=== PATIENT | female | born 1995 ===

== ENCOUNTER 2019-03-11 12:48 | Emergency (ER) | payer OTHER ==
[2019-03-11 14:21] LABS: BLOOD UREA NITROGEN,BUN 14 mg/dL (7.0-18.0); CARBON DIOXIDE,CO2 21.4 mmol/L (21.0-32.0); CHLORIDE,CL 105 mmol/L (98-107); GLUCOSE RANDOM 98 mg/dL (74-106); POTASSIUM,K 4.1 mmol/L (3.5-5.1); SODIUM,NA 142 mmol/L (136-145)
[2019-03-11] MEDS ORDERED: Ondansetron 4 MG/2 ML SDV IVPUSH ONE (14:22)
[2019-03-11] MEDS ORDERED: Morphine 2 MG/ML Syringe IVPUSH ONE (14:22)
[2019-03-11] MEDS ORDERED: Sodium Chloride 0.9% 1,000 ML IV SCH (14:30)
--- NOTE | 2019-03-11 14:55 | EDM.PDOC ---
ED HPI GENERAL MEDICAL PROBLEM - General Chief Complaint: RECRUITMENT MANAGER Problem Stated Complaint: VIGINAL BLEEDING Time Seen by Provider: 03/11/19 14:54 Source of Information: Reports: Patient - History of Present Illness INITIAL COMMENTS - FREE TEXT/NARRATIVE: HISTORY AND PHYSICAL: History of present illness: [Patient presents with miscarriage, she was concerned as she is passing blood the rate of 1 pad per hour miscarriage occurred at 10 AM today as far as passage of products of conception, she has been seen in the clinic with ongoing care and expectation of the miscarriage. Today she is nontoxic appearing in no distress but does have concerns she has had a prolonged stay here in the ER just as we are busy however she is doing well I did provide morphine and Zofran pain is controlled she is alert interactive in no distress Fever nausea vomiting chills sweats no chest pain shortness of breath headache dizziness palpitation no bowel or urine symptoms ] Review of systems: As per history of present illness and below otherwise all systems reviewed and negative. Past medical history: As per history of present illness and as reviewed below otherwise noncontributory. Surgical history: As per history of present illness and as reviewed below otherwise noncontributory. Social history: No reported history of drug or alcohol abuse. Family history: As per history of present illness and as reviewed below otherwise noncontributory. Physical exam: HEENT: Atraumatic, normocephalic, pupils reactive, negative for conjunctival pallor or scleral icterus, mucous membranes moist, throat clear, neck supple, nontender, trachea midline. Lungs: Clear to auscultation, breath sounds equal bilaterally, chest nontender. Heart: S1S2, regular, negative for clicks, rubs, or JVD. Abdomen: Soft, nondistended, nontender. Negative for masses or hepatosplenomegaly. Negative for costovertebral tenderness. Pelvis: Stable nontender. Genitourinary: Genital exam no products of conception her observed cervix remains open to 1 cm at this time appears to take floating closing there is some blood in the vaginal vault but I do not appreciate any products of conception that remain Rectal: Deferred. Extremities: Atraumatic, negative for cords or calf pain. Neurovascular unremarkable. Neuro: Awake, alert, oriented. Cranial nerves II through XII unremarkable. Cerebellum unremarkable. Motor and sensory unremarkable throughout. Exam nonfocal. Diagnostics: [BC CMP hCG quant ] Therapeutics: [norco Zofran Follow-up with Shirley Schmitt] ER referral for Wednesday Turn if symptoms persist or worsen or if new concerning symptoms develop Impression: [Incomplete ] Definitive disposition and diagnosis as appropriate pending reevaluation and review of above. abd Pain Score (Numeric/FACES): 10 - Related Data Allergies Allergy/AdvReac Type Severity Reaction Status Date / Time No Known Allergies Allergy Verified 03/11/19 12:59 Home Meds: Home Meds . [No Known Home Meds] 03/11/19 [History] Past Medical History - Past Health History Medical/Surgical History: Denies Medical/Surgical History Social & Family History - Family History Family Medical History: Noncontributory - Tobacco Use Smoking Status *Q: Never Smoker - Recreational Drug Use Recreational Drug Use: No ED ROS GENERAL - Review of Systems Review Of Systems: See Below ED EXAM, GENERAL - Physical Exam Exam: See Below Course - Vital Signs Last Recorded V/S: Last Vital Signs Temp 95.9 F 03/11/19 13:00 Pulse 66 03/11/19 14:20 Resp 16 03/11/19 14:20 BP 107/58 L 03/11/19 14:20 Pulse Ox 97 03/11/19 14:20 - Orders/Labs/Meds Orders: Active Orders 24 hr Category Date Time Status Sodium Chloride 0.9% [Normal Saline] 1,000 ml Med 03/11/19 14:30 Active IV STAT Medication Orders Sodium Chloride (Normal Saline) 1,000 mls @ 999 mls/hr IV STAT SALLIE Last Admin: 03/11/19 14:29 Dose: 999 mls/hr Labs: Laboratory Tests 03/11/19 03/11/19 Range/Units 13:45 13:45 WBC 13.36 H (4.0-11.0) K/uL RBC 4.22 L (4.30-5.90) M/uL Hgb 13.6 (12.0-16.0) g/dL Hct 38.5 (36.0-46.0) % MCV 91.2 (80.0-98.0) fL MCH 32.2 H (27.0-32.0) pg MCHC 35.3 (31.0-37.0) g/dL RDW Std Deviation 41.1 (28.0-62.0) fl RDW Coeff of Aarti 12 (11.0-15.0) % Plt Count 171 (150-400) K/uL MPV 9.80 (7.40-12.00) fL Neut % (Auto) 87.2 H (48.0-80.0) % Lymph % (Auto) 9.2 L (16.0-40.0) % [place] % (Auto) 3.4 (0.0-15.0) % Eos % (Auto) 0.1 (0.0-7.0) % Baso % (Auto) 0.1 (0.0-1.5) % Neut # (Auto) 11.6 H (1.4-5.7) K/uL Lymph # (Auto) 1.2 (0.6-2.4) K/uL [place] # (Auto) 0.5 (0.0-0.8) K/uL Eos # (Auto) 0.0 (0.0-0.7) K/uL Baso # (Auto) 0.0 (0.0-0.1) K/uL Nucleated RBC % 0.0 /100WBC Nucleated RBCs # 0 K/uL Sodium 142 (136-145) mmol/L Potassium 4.1 (3.5-5.1) mmol/L Chloride 105 (98-107) mmol/L Carbon Dioxide 21.4 (21.0-32.0) mmol/L BUN 14 (7.0-18.0) mg/dL Creatinine 0.7 (0.6-1.0) mg/dL Est Cr Clr Drug Dosing 84.30 mL/min Estimated GFR (MDRD) > 60.0 ml/min Glucose 98 (74-106) mg/dL Calcium 8.9 (8.5-10.1) mg/dL Total Bilirubin 0.5 (0.2-1.0) mg/dL AST 21 (15-37) IU/L ALT 30 (14-63) IU/L Alkaline Phosphatase 71 (46-116) U/L Total Protein 7.8 (6.4-8.2) g/dL Albumin 4.3 (3.4-5.0) g/dL Globulin 3.5 (2.6-4.0) g/dL Albumin/Globulin Ratio 1.2 (0.9-1.6) HCG, Quant 6689.0 mIU/mL Meds: Medications Generic Name Dose Route Start Last Admin Trade Name Freq PRN Reason Stop Dose Admin Sodium Chloride 1,000 mls @ 999 mls/hr 03/11/19 14:30 03/11/19 14:29 Normal Saline IV 999 mls/hr STAT SALLIE Administration Discontinued Medications Generic Name Dose Route Start Last Admin Trade Name Freq PRN Reason Stop Dose Admin Morphine Sulfate 2 mg 03/11/19 14:22 03/11/19 14:31 Morphine IVPUSH 03/11/19 14:23 2 mg ONETIME ONE Administration Ondansetron HCl 4 mg 03/11/19 14:22 03/11/19 14:30 Zofran IVPUSH 03/11/19 14:23 4 mg ONETIME ONE Administration Departure - Departure Time of Disposition: 15:25 Disposition: Home, Self-Care 01 Condition: Good Clinical Impression: Incomplete - Discharge Information Referrals: PCP,None [Primary Care Provider] - Forms: ED Department Discharge Additional Instructions: Medication as prescribed Return if symptoms persist or worsen Follow-up with Shirley Schmitt on Wednesday ER referral provided The following information is given to patients seen in the emergency department who are being discharged to home. This information is to outline your options for follow-up care. We provide all patients seen in our emergency department with a follow-up referral. The need for follow-up, as well as the timing and circumstances, are variable depending upon the specifics of your emergency department visit. If you don't have a primary care physician on staff, we will provide you with a referral. We always advise you to contact your personal physician following an emergency department visit to inform them of the circumstance of the visit and for follow-up with them and/or the need for any referrals to a consulting specialist. The emergency department will also refer you to a specialist when appropriate. This referral assures that you have the opportunity for follow-up care with a specialist. All of these measure are taken in an effort to provide you with optimal care, which includes your follow-up. Under all circumstances we always encourage you to contact your private physician who remains a resource for coordinating your care. When calling for follow-up care, please make the office aware that this follow-up is from your recent emergency room visit. If for any reason you are refused follow-up, please contact the [facility] emergency department at and asked to speak to the emergency department charge nurse. Sepsis Event Note - Evaluation Sepsis Screening Result: No Definite Risk - Focused Exam Vital Signs: Vital Signs Temp Pulse Resp BP Pulse Ox 03/11/19 14:20 66 16 107/58 L 97 03/11/19 14:00 61 18 101/44 L 97 03/11/19 13:30 64 18 98/59 L 97 03/11/19 13:15 61 18 100/56 L 96 03/11/19 13:00 95.9 F 54 L 16 87/49 L 100 Date Exam was Performed: 03/11/19 Time Exam was Performed: 15:19 - My Orders Last 24 Hours: My Active Orders 03/11/19 14:30 Sodium Chloride 0.9% [Normal Saline] 1,000 ml IV STAT - Assessment/Plan Last 24 Hours: My Active Orders 03/11/19 14:30 Sodium Chloride 0.9% [Normal Saline] 1,000 ml IV STAT
== END 2019-03-11 15:43 | disposition home or self-care (01) ==
LOC: MW.ED 12:48
DX: O03.4 Incomplete spontaneous abortion without complication (principal)
CPT/HCPCS: 36415; 80053; 84702; 85025; 96361; 96374; 96375; 99284; J2270; J2405; J7030; 99283

== ENCOUNTER 2019-12-26 23:58 | Inpatient (IN) | payer OTHER ==
[2019-12-27] MEDS ORDERED: Sodium Chloride 0.9% 10 ML Syringe FLUSH PRN (00:10)
[2019-12-27] MEDS ORDERED: Lidocaine 1% 50 ML MDV INJECT PRN (00:10)
[2019-12-27] MEDS ORDERED: Butorphanol 1 MG/ML SDV IVPUSH PRN (00:10)
[2019-12-27] MEDS ORDERED: Water For Irrigation,Sterile 1,000 ML Container IRR PRN (00:10)
[2019-12-27] MEDS ORDERED: Methylergonovine 0.2 MG/1 ML Amp IM PRN (00:10)
[2019-12-27] MEDS ORDERED: Tranexamic Acid 1,000 MG in Sodium Chloride 0.9% 100 ML IV PRN (00:10)
[2019-12-27] MEDS ORDERED: Misoprostol 200 MCG Tab PO PRN (00:10)
[2019-12-27] MEDS ORDERED: Nalbuphine 10 MG/1 ML Vial IVPUSH PRN (00:10)
[2019-12-27] MEDS ORDERED: Sodium Chloride 0.9% 2.5 ML Syringe FLUSH PRN (00:10)
[2019-12-27] MEDS ORDERED: Sodium Chloride 0.9% 10 ML SDV IV PRN (00:10)
[2019-12-27] MEDS ORDERED: Carboprost Tromethamine 250 MCG/1 ML Amp IM PRN (00:10)
[2019-12-27] MEDS ORDERED: Oxytocin/0.9 % Sodium Chloride 30 UNIT/500 ML BAG IV SCH (00:15)
[2019-12-27] MEDS ORDERED: Lactated Ringers 1,000 ML IV SCH (00:15)
[2019-12-27] MEDS ORDERED: Benzocaine/Menthol 20%-0.5% Spray 78 GM Cannister TOP PRN (01:03)
[2019-12-27] MEDS ORDERED: Docusate Sodium 100 MG Cap PO PRN (01:03)
[2019-12-27] MEDS ORDERED: oxyCODONE 5 MG Tab PO PRN (01:03)
[2019-12-27] MEDS ORDERED: Ibuprofen 400 MG Tab PO PRN (01:03)
[2019-12-27] MEDS ORDERED: Acetaminophen 500 MG Tab PO PRN (01:03)
[2019-12-27] MEDS ORDERED: Lanolin 100% Cream 7 GM Tube TOP PRN (01:03)
[2019-12-27] MEDS ORDERED: Witch Hazel Medicated Pads 40/Jar TOP PRN (01:03)
[2019-12-27] MEDS ORDERED: Bisacodyl 10 MG Supp RECTAL PRN (01:03)
[2019-12-27] MEDS: Ibuprofen 800 MG Tab PO PRN ×2 (02:26→11:00)
--- NOTE | 2019-12-27 09:28 | PCM.PNPP ---
- General Info Date of Service: 12/27/19 Functional Status: Reports: Pain Controlled - Review of Systems General: Reports: No Symptoms HEENT: Reports: No Symptoms Pulmonary: Reports: No Symptoms Cardiovascular: Reports: No Symptoms Gastrointestinal: Reports: No Symptoms Genitourinary: Reports: No Symptoms Musculoskeletal: Reports: No Symptoms Skin: Reports: No Symptoms Neurological: Reports: No Symptoms Psychiatric: Reports: No Symptoms - General Info Date of Service: 12/27/19 - Patient Data Vital Signs - Most Recent: Last Vital Signs Temp 35.6 C L 12/27/19 08:17 Pulse 67 12/27/19 08:17 Resp 20 12/27/19 08:17 BP 111/53 L 12/27/19 08:17 Pulse Ox 98 12/27/19 08:17 Weight - Most Recent: 56.699 kg Lab Results - Last 24 Hours: Laboratory Results - last 24 hr 12/27/19 12/27/19 Range/Units 00:25 00:25 WBC 8.56 (4.0-11.0) K/uL RBC 3.38 L (4.30-5.90) M/uL Hgb 7.8 L (12.0-16.0) g/dL Hct 25.3 L (36.0-46.0) % MCV 74.9 L (80.0-98.0) fL MCH 23.1 L (27.0-32.0) pg MCHC 30.8 L (31.0-37.0) g/dL RDW Std Deviation 45.0 (28.0-62.0) fl RDW Coeff of Aarti 17 H (11.0-15.0) % Plt Count 315 (150-400) K/uL MPV 10.40 (7.40-12.00) fL Blood Type O POSITIVE Antibody Screen NEGATIVE Med Orders - Current: Current Medications Acetaminophen (Tylenol Extra Strength) 500 mg PO Q4H PRN PRN Reason: Pain Acetaminophen (Tylenol Extra Strength) 1,000 mg PO Q4H PRN PRN Reason: Pain Benzocaine/Menthol (Dermoplast Pain Relief 20%-0.5% [place]) 78 gm TOP ASDIRECTED PRN PRN Reason: Perineal Comfort Measure Bisacodyl (Dulcolax) 10 mg RECTAL ONETIME PRN PRN Reason: Constipation Docusate Sodium (Colace) 100 mg PO BID PRN PRN Reason: Constipation Emollient Ointment (Lansinoh Hpa) 0 gm TOP ASDIRECTED PRN PRN Reason: Sore Nipples Ibuprofen (Motrin) 400 mg PO Q4H PRN PRN Reason: Pain Ibuprofen (Motrin) 800 mg PO Q6H PRN PRN Reason: Pain Last Admin: 12/27/19 02:26 Dose: 800 mg Documented by: Oxycodone HCl (Oxycodone) 5 mg PO Q2H PRN PRN Reason: Pain Sodium Chloride (Saline Flush) 10 ml FLUSH ASDIRECTED PRN PRN Reason: Keep Vein Open Sodium Chloride (Saline Flush) 2.5 ml FLUSH ASDIRECTED PRN PRN Reason: Keep Vein Open Sodium Chloride (Normal Saline) 10 ml IV ASDIRECTED PRN PRN Reason: IV Use Witch Andree (Tucks) 1 pad TOP ASDIRECTED PRN PRN Reason: comfort care Discontinued Medications Butorphanol Tartrate (Stadol) 1 mg IVPUSH Q1H PRN PRN Reason: Pain Carboprost Tromethamine (Hemabate Ds) 250 mcg IM ASDIRECTED PRN PRN Reason: Post Hemorrhage Oxytocin/Sodium Chloride (Oxytocin 30 Unit/500 Ml-Ns) 30 unit in 500 mls @ 500 mls/hr IV TITRATE [facility] Last Admin: 12/27/19 00:46 Dose: 500 mls/hr Documented by: Tranexamic Acid 1,000 mg/ (Sodium Chloride) 110 mls @ 660 mls/hr IV ONETIME PRN PRN Reason: Bleeding Lactated Ringer's (Ringers, Lactated) 1,000 mls @ 150 mls/hr IV ASDIRECTED [facility] Last Admin: 12/27/19 00:10 Dose: 150 mls/hr Documented by: Lidocaine HCl (Xylocaine 1%) 50 ml INJECT ONETIME PRN PRN Reason: Laceration repair Methylergonovine Maleate (Methergine) 0.2 mg IM ASDIRECTED PRN PRN Reason: Post Hemorrhage Misoprostol (Cytotec) 200 mcg PO ONETIME PRN PRN Reason: Post Hemorrhage Nalbuphine HCl (Nubain) 10 mg IVPUSH Q1H PRN PRN Reason: Pain (severe 7-10) Sterile Water (Sterile Water For Irrigation) 1,000 ml IRR ASDIRECTED PRN PRN Reason: delivery - Infant Interaction Disposition, : [place] in Room with Family Infant Interaction: Holding Infant Infant Feeding: Attempted ; Nursed Fair/Poor Support Person: - Recovery Exam Fundal Tone: Firm Fundal Level: At Umbilicus Fundal Placement: Midline Lochia Amount: Scant Perineum Description: Intact, Minimal Bruising/Swelling Episiotomy/Laceration: None Bladder Status: Voiding - Exam General: Alert, Oriented HEENT: Pupils Equal Neck: Supple Lungs: Clear to Auscultation, Normal Respiratory Effort Cardiovascular: Regular Rate, Regular Rhythm GI/Abdominal Exam: Normal Bowel Sounds, Soft, Non-Tender, No Organomegaly, No Distention, No Abnormal Bruit, No Mass, Pelvis Stable Extremities: Normal Inspection, Normal Range of Motion, Non-Tender, No Pedal Edema, Normal Capillary Refill Skin: Warm, Dry, Intact Wound/Incisions: Healing Well Neurological: No New Focal Deficit Psy/Mental Status: Alert, Normal Affect, Normal Mood - Problem List Review Problem List Initiated/Reviewed/Updated: Yes - My Orders Last 24 Hours: My Active Orders 12/27/19 Breakfast Regular Diet [DIET] - Assessment Assessment:: Status post normal spontaneous vaginal delivery doing well day 1 - Plan Plan:: Plan sent home in a.m.
--- NOTE | 2019-12-27 09:49 | PCM.LDHP ---
L&D History of Present Illness - General Date of Service: 12/27/19 (LATE ENTRY) Admit Problem/Dx: Patient Status Order with Admit Dx/Problem 12/27/19 00:10 Patient Status [ADT] Routine 12/27/19 01:04 Patient Status [ADT] Routine Admission Diagnosis/Problem Admission Diagnosis/Problem Source of Information: Patient History Limitations: Reports: No Limitations - History of Present Illness Introduction:: 24yo at 38w6d GA presented to L&D with contractions She reports contractions x2d. No VB, or LOF. Good movement. was uncomplicated. O positive, Abs screen negative, RI, GBS negative Pain Score: 2 - Related Data Allergies/Adverse Reactions: Allergies Allergy/AdvReac Type Severity Reaction Status Date / Time No Known Allergies Allergy Verified 12/26/19 12:49 Home Medications: Home Meds . 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: , Spontaneous Social & Family History - Family History Family Medical History: No Pertinent Family History - Tobacco Use Tobacco Use Status *Q: Never Tobacco User Second Hand Smoke Exposure: No - Caffeine Use Caffeine Use: Reports: None - Recreational Drug Use Recreational Drug Use: No H&P Review of Systems - Review of Systems: Review Of Systems: See Below General: Reports: No Symptoms HEENT: Reports: No Symptoms Pulmonary: Reports: No Symptoms Cardiovascular: Reports: No Symptoms Gastrointestinal: Reports: No Symptoms Genitourinary: Reports: No Symptoms Musculoskeletal: Reports: No Symptoms Skin: Reports: No Symptoms Psychiatric: Reports: No Symptoms Neurological: Reports: No Symptoms Hematologic/Lymphatic: Reports: No Symptoms L&D Exam - Exam Exam: See Below - Vital Signs Vital Signs: Last Vital Signs Temp 96.0 F L 12/27/19 08:17 Pulse 67 12/27/19 08:17 Resp 20 12/27/19 08:17 BP 111/53 L 12/27/19 08:17 Pulse Ox 98 12/27/19 08:17 Weight: 56.699 kg - OB Specific Contraction Intensity: Moderate to Strong Movement: Active Heart Tones: Present Heart Tones per Min: 145 Heart Rate (FHR) Variability: Moderate (6-25 bmp) Presentation: Vertex Estimated Weight: 7lbs - Holland Score Holland Score Cervix Position: Anterior Holland Score Consistency: Soft Holland Score Effacement: >80% Holland Score Dilation: > 5 cm Holland Score Infant's Station: -1 ,0 Holland Score Total: 12 - Exam General: Alert, Oriented, Moderate Distress Neck: Supple Lungs: Normal Respiratory Effort Cardiovascular: Regular Rate Extremities: Normal Inspection - Patient Data Lab Results Last 24 hrs: Laboratory Results - last 24 hr 12/27/19 12/27/19 Range/Units 00:25 00:25 WBC 8.56 (4.0-11.0) K/uL RBC 3.38 L (4.30-5.90) M/uL Hgb 7.8 L (12.0-16.0) g/dL Hct 25.3 L (36.0-46.0) % MCV 74.9 L (80.0-98.0) fL MCH 23.1 L (27.0-32.0) pg MCHC 30.8 L (31.0-37.0) g/dL RDW Std Deviation 45.0 (28.0-62.0) fl RDW Coeff of Aarti 17 H (11.0-15.0) % Plt Count 315 (150-400) K/uL MPV 10.40 (7.40-12.00) fL Blood Type O POSITIVE Antibody Screen NEGATIVE Result Diagrams: 12/27/19 00:25 - Problem List (1) Term SNOMED Code(s): 97240084 ICD Code: Z34.90 - ENCNTR FOR SUPRVSN OF NORMAL , UNSP, UNSP TRIMESTER Status: Acute Priority: Medium Current Visit: Yes (2) Normal labor SNOMED Code(s): 85278508 ICD Code: O80 - ENCOUNTER FOR FULL-TERM UNCOMPLICATED DELIVERY; Z37.9 - OUTCOME OF DELIVERY, UNSPECIFIED Status: Acute Priority: High Current Vis it: Yes Problem List Initiated/Reviewed/Updated: Yes Orders Last 24hrs: Active Orders 24 hr Category Date Time Status Patient Status [ADT] Routine ADT 12/27/19 01:04 Active May Shower [RC] ASDIRECTED Care 12/27/19 01:04 Active Up ad Tessie [RC] ASDIRECTED Care 12/27/19 01:04 Active Vital Signs [RC] PER UNIT ROUTINE Care 12/27/19 01:04 Active Regular Diet [DIET] Diet 12/27/19 Breakfast Active HEMOGLOBIN/HEMATOCRIT,HH [HEME] Timed Lab 12/28/19 05:11 Ordered RPR (SYPHILIS SERO) W/ RFLX [REF] Routine Lab 12/27/19 00:25 Stop Req Acetaminophen [Tylenol Extra Strength] Med 12/27/19 01:03 Active 1,000 mg PO Q4H PRN Acetaminophen [Tylenol Extra Strength] Med 12/27/19 01:03 Active 500 mg PO Q4H PRN Benzocaine/Menthol [Dermoplast Pain Relief 20%-0.5% Med 12/27/19 01:03 Active [place]] 78 gm TOP ASDIRECTED PRN Docusate Sodium [Colace] Med 12/27/19 01:03 Active 100 mg PO BID PRN Ibuprofen [Motrin] Med 12/27/19 01:03 Active 400 mg PO Q4H PRN Ibuprofen [Motrin] Med 12/27/19 01:03 Active 800 mg PO Q6H PRN Lanolin [Lansinoh HPA] Med 12/27/19 01:03 Active See Dose Instructions TOP ASDIRECTED PRN Sodium Chloride 0.9% [Normal Saline] Med 12/27/19 00:10 Active 10 ml IV ASDIRECTED PRN Sodium Chloride 0.9% [Saline Flush] Med 12/27/19 00:10 Active 10 ml FLUSH ASDIRECTED PRN Sodium Chloride 0.9% [Saline Flush] Med 12/27/19 00:10 Active 2.5 ml FLUSH ASDIRECTED PRN bisacodyL [Dulcolax] Med 12/27/19 01:03 Active 10 mg RECTAL ONETIME PRN oxyCODONE Med 12/27/19 01:03 Active 5 mg PO Q2H PRN witch Andree [Tucks] Med 12/27/19 01:03 Active 1 pad TOP ASDIRECTED PRN Assess Lochia [WOMSER] Per Unit Routine Oth 12/27/19 01:04 Ordered Assess Uterine Involution [WOMSER] Per Unit Routine Oth 12/27/19 01:04 Ordered Peripheral IV Discontinue [OM.PC] Routine Oth 12/27/19 01:04 Ordered Peripheral IV Insertion Adult [OM.PC] Routine Oth 12/27/19 00:10 Ordered Resuscitation Status Routine Resus Stat 12/27/19 00:10 Ordered Medication Orders Acetaminophen (Tylenol Extra Strength) 500 mg PO Q4H PRN PRN Reason: Pain Acetaminophen (Tylenol Extra Strength) 1,000 mg PO Q4H PRN PRN Reason: Pain Benzocaine/Menthol (Dermoplast Pain Relief 20%-0.5% [place]) 78 gm TOP ASDIRECTED PRN PRN Reason: Perineal Comfort Measure Bisacodyl (Dulcolax) 10 mg RECTAL ONETIME PRN PRN Reason: Constipation Docusate Sodium (Colace) 100 mg PO BID PRN PRN Reason: Constipation Emollient Ointment (Lansinoh Hpa) 0 gm TOP ASDIRECTED PRN PRN Reason: Sore Nipples Ibuprofen (Motrin) 400 mg PO Q4H PRN PRN Reason: Pain Ibuprofen (Motrin) 800 mg PO Q6H PRN PRN Reason: Pain Last Admin: 12/27/19 02:26 Dose: 800 mg Documented by: ROBERTO Oxycodone HCl (Oxycodone) 5 mg PO Q2H PRN PRN Reason: Pain Sodium Chloride (Saline Flush) 10 ml FLUSH ASDIRECTED PRN PRN Reason: Keep Vein Open Sodium Chloride (Saline Flush) 2.5 ml FLUSH ASDIRECTED PRN PRN Reason: Keep Vein Open Sodium Chloride (Normal Saline) 10 ml IV ASDIRECTED PRN PRN Reason: IV Use Witch Andree (Tucks) 1 pad TOP ASDIRECTED PRN PRN Reason: comfort care Assessment/Plan Comment:: 24yo @ 38w6d [place] here is active labor with imminent delivery. Category 1 tracing. GBS negative. Patient desires to pursue with delivery without epidural. Expectant management
--- NOTE | 2019-12-27 10:04 | PCM.DEL ---
L & D Note - General Info Date of Service: 12/27/19 (LATE ENTRY) Mother's Due Date: 01/04/20 - Delivery Note Delivery Outcome: Livebirth Delivery Method: Spontaneous Vaginal Delivery-Single Presentation: Vertex Nuchal Cord: Present, Reduced Anesthesia Type: None Episiotomy Type: None Laceration: None Placenta: Intact, Spontaneous Estimated Blood Loss: 350 Resuscitation Needed: No Score 1 min: 8 Score 5 min: 9 Delivery Comments (Free Text/Narrative):: 24yo at 38w6d [place] admitted with active labor at 9cm dilated. was uncomplicated. O positive, Abs screen negative, RI, GBS negative. Normal spontaneous vaginal delivery, of live female infant position HADLEY, over an intact perineum without epidural anesthesia. Presence of loose nuchal that was reduced. Spontaneous delivery of placenta with 3-vessel cord. No laceration. Estimated blood loss 350mLs. All sponges and instrument counts correct Delivery details: Female infant Weight: 3200gms : 8/9 EBL 350cc - General Info Date of Service: 12/27/19 (LATE ENTRY) Admission Dx/Problem (Free Text): Patient Status Order with Admit Dx/Problem 12/27/19 00:10 Patient Status [ADT] Routine 12/27/19 01:04 Patient Status [ADT] Routine Admission Diagnosis/Problem Admission Diagnosis/Problem Subjective Update: 24yo at 38w6d [place] admitted with active labor at 9cm dilated. was uncomplicated. O positive, Abs screen negative, RI, GBS negative. S/P uncomplicated Delivery details: Female infant Weight: 3200gms : 8/9 EBL 350cc - Patient Data Vitals - Most Recent: Last Vital Signs Temp 96.0 F L 12/27/19 08:17 Pulse 67 12/27/19 08:17 Resp 20 12/27/19 08:17 BP 111/53 L 12/27/19 08:17 Pulse Ox 98 12/27/19 08:17 Weight - Most Recent: 56.699 kg Lab Results Last 24 Hours: Laboratory Results - last 24 hr 12/27/19 12/27/19 Range/Units 00:25 00:25 WBC 8.56 (4.0-11.0) K/uL RBC 3.38 L (4.30-5.90) M/uL Hgb 7.8 L (12.0-16.0) g/dL Hct 25.3 L (36.0-46.0) % MCV 74.9 L (80.0-98.0) fL MCH 23.1 L (27.0-32.0) pg MCHC 30.8 L (31.0-37.0) g/dL RDW Std Deviation 45.0 (28.0-62.0) fl RDW Coeff of Aarti 17 H (11.0-15.0) % Plt Count 315 (150-400) K/uL MPV 10.40 (7.40-12.00) fL Blood Type O POSITIVE Antibody Screen NEGATIVE Med Orders - Current: Current Medications Acetaminophen (Tylenol Extra Strength) 500 mg PO Q4H PRN PRN Reason: Pain Acetaminophen (Tylenol Extra Strength) 1,000 mg PO Q4H PRN PRN Reason: Pain Benzocaine/Menthol (Dermoplast Pain Relief 20%-0.5% [place]) 78 gm TOP ASDIRECTED PRN PRN Reason: Perineal Comfort Measure Bisacodyl (Dulcolax) 10 mg RECTAL ONETIME PRN PRN Reason: Constipation Docusate Sodium (Colace) 100 mg PO BID PRN PRN Reason: Constipation Emollient Ointment (Lansinoh Hpa) 0 gm TOP ASDIRECTED PRN PRN Reason: Sore Nipples Ibuprofen (Motrin) 400 mg PO Q4H PRN PRN Reason: Pain Ibuprofen (Motrin) 800 mg PO Q6H PRN PRN Reason: Pain Last Admin: 12/27/19 02:26 Dose: 800 mg Documented by: Oxycodone HCl (Oxycodone) 5 mg PO Q2H PRN PRN Reason: Pain Sodium Chloride (Saline Flush) 10 ml FLUSH ASDIRECTED PRN PRN Reason: Keep Vein Open Sodium Chloride (Saline Flush) 2.5 ml FLUSH ASDIRECTED PRN PRN Reason: Keep Vein Open Sodium Chloride (Normal Saline) 10 ml IV ASDIRECTED PRN PRN Reason: IV Use Witch Andree (Tucks) 1 pad TOP ASDIRECTED PRN PRN Reason: comfort care Discontinued Medications Butorphanol Tartrate (Stadol) 1 mg IVPUSH Q1H PRN PRN Reason: Pain Carboprost Tromethamine (Hemabate Ds) 250 mcg IM ASDIRECTED PRN PRN Reason: Post Hemorrhage Oxytocin/Sodium Chloride (Oxytocin 30 Unit/500 Ml-Ns) 30 unit in 500 mls @ 500 mls/hr IV TITRATE [facility] Last Admin: 12/27/19 00:46 Dose: 500 mls/hr Documented by: Tranexamic Acid 1,000 mg/ (Sodium Chloride) 110 mls @ 660 mls/hr IV ONETIME PRN PRN Reason: Bleeding Lactated Ringer's (Ringers, Lactated) 1,000 mls @ 150 mls/hr IV ASDIRECTED [facility] Last Admin: 12/27/19 00:10 Dose: 150 mls/hr Documented by: Lidocaine HCl (Xylocaine 1%) 50 ml INJECT ONETIME PRN PRN Reason: Laceration repair Methylergonovine Maleate (Methergine) 0.2 mg IM ASDIRECTED PRN PRN Reason: Post Hemorrhage Misoprostol (Cytotec) 200 mcg PO ONETIME PRN PRN Reason: Post Hemorrhage Nalbuphine HCl (Nubain) 10 mg IVPUSH Q1H PRN PRN Reason: Pain (severe 7-10) Sterile Water (Sterile Water For Irrigation) 1,000 ml IRR ASDIRECTED PRN PRN Reason: delivery - Exam General: Alert, Oriented Neck: Supple Lungs: Normal Respiratory Effort Cardiovascular: Regular Rate (Female) Exam: Normal External Exam Extremities: Normal Inspection - Problem List & Annotations (1) Normal vaginal delivery SNOMED Code(s): 28364302, 438848991 Code(s): O80 - ENCOUNTER FOR FULL-TERM UNCOMPLICATED DELIVERY Status: Acute Current Visit: Yes (2) Term delivered SNOMED Code(s): 12655263, 667851894 Code(s): O80 - ENCOUNTER FOR FULL-TERM UNCOMPLICATED DELIVERY Status: Acute Current Visit: Yes - Problem List Review Problem List Initiated/Reviewed/Updated: Yes - My Orders Last 24 Hours: My Active Orders 12/27/19 00:10 Sodium Chloride 0.9% [Normal Saline] 10 ml IV ASDIRECTED PRN Sodium Chloride 0.9% [Saline Flush] 10 ml FLUSH ASDIRECTED PRN Sodium Chloride 0.9% [Saline Flush] 2.5 ml FLUSH ASDIRECTED PRN Peripheral IV Insertion Adult [OM.PC] Routine Resuscitation Status Routine 12/27/19 00:25 RPR (SYPHILIS SERO) W/ RFLX [REF] Routine 12/27/19 01:03 Acetaminophen [Tylenol Extra Strength] 1,000 mg PO Q4H PRN Acetaminophen [Tylenol Extra Strength] 500 mg PO Q4H PRN Benzocaine/Menthol [Dermoplast Pain Relief 20%-0.5% [place]] 78 gm TOP ASDIRECTED PRN Docusate Sodium [Colace] 100 mg PO BID PRN Ibuprofen [Motrin] 400 mg PO Q4H PRN Ibuprofen [Motrin] 800 mg PO Q6H PRN Lanolin [Lansinoh HPA] See Dose Instructions TOP ASDIRECTED PRN bisacodyL [Dulcolax] 10 mg RECTAL ONETIME PRN oxyCODONE 5 mg PO Q2H PRN witch Andree [Tucks] 1 pad TOP ASDIRECTED PRN 12/27/19 01:04 Patient Status [ADT] Routine May Shower [RC] ASDIRECTED Up ad Tessie [RC] ASDIRECTED Vital Signs [RC] PER UNIT ROUTINE Assess Lochia [WOMSER] Per Unit Routine Assess Uterine Involution [WOMSER] Per Unit Routine Peripheral IV Discontinue [OM.PC] Routine 12/28/19 05:11 HEMOGLOBIN/HEMATOCRIT,HH [HEME] Timed - Plan Plan:: 24yo at 38w6d [place] admitted with active labor at 9cm dilated. S/P uncomplicated Delivery details: Female infant Weight: 3200gms : 8/9 EBL 350cc
[2019-12-27] MEDS: Acetaminophen 500 MG Tab PO PRN (20:07)
--- NOTE | 2019-12-28 06:19 | PCM.DCSUM1 ---
Discharge Summary - Hospital Course Free Text/Narrative:: Leandra is a 24 yo PPD1 S/P uncomplicated at 38.6 weeks (RADHA 01/04/2020), perineum intact. O pos, RI, GBS neg. Hbg 7.8 (12/26) up to 8.2 today (12/27); Plt 315. Patient reports she is doing well, pain well controlled with ibuprofen PRN. Ambulating, hydrating, voiding, and eating independently and with ease. Bottle and breast feeding infant, going well. Patient reports small to medium vaginal bleeding, no clots. Patient denies any complaints or concerns at this time, verbalizes her desire to be discharge home later today. Diagnosis: Stroke: No - Discharge Data Discharge Date: 12/28/19 Discharge Disposition: Home, Self-Care 01 Condition: Good - Referral to Home Health Primary Care Physician: PCP None - Discharge Diagnosis/Problem(s) (1) (spontaneous vaginal delivery) SNOMED Code(s): 519835623 ICD Code: O80 - ENCOUNTER FOR FULL-TERM UNCOMPLICATED DELIVERY Status: Acute Priority: High Current Visit: Yes (2) Lactating mother SNOMED Code(s): 105794452, 481452238 ICD Code: Z39.1 - ENCOUNTER FOR CARE AND EXAMINATION OF LACTATING MOTHER Status: Acute Priority: High Current Visit: Yes - Patient Instructions Diet: Usual Diet as Tolerated, Regular Diet as Tolerated, Drink 8-10+ Glasses/Day Activity: As Tolerated, No Strenuous Activities, Rest and Relax Today Driving: May Drive Today Driving, Other: May sitz bath for perineal care Showering/Bathing: May Shower Notify Provider of: Fever, Increased Pain, Swelling and Redness, Drainage, Nausea and/or Vomiting - Discharge Plan *PRESCRIPTION DRUG MONITORING PROGRAM REVIEWED*: No *COPY OF PRESCRIPTION DRUG MONITORING REPORT IN PATIENT LAURA: No Prescriptions/Med Rec: Iron Polysaccharides Complex [Ferrex 150] 150 mg PO BID #60 cap Ibuprofen [Motrin] 800 mg PO Q8H PRN #90 tablet PRN Reason: Pain Home Medications: Home Meds Ibuprofen [Motrin] 800 mg PO Q8H PRN #90 tablet 12/28/19 [Rx] Iron Polysaccharides Complex [Ferrex 150] 150 mg PO BID #60 cap 12/28/19 [Rx] Oxygen Therapy Mode: Room Air Patient Handouts: Care After Vaginal Delivery, and Inducing Referrals: Norma Richard, CNM [Mid-] - 02/07/20 10:30 am - Discharge Summary/Plan Comment DC Time >30 min.: Yes Discharge Summary/Plan Comment: Hemodynamically stable, afebrile. Start 150 mg iron supplementation BID to be taken with citrus source. 800 mg ibuprofen q 8 hrs as needed for pain. Warning S/Ss, when to call for help discussed. May receive support information prior to discharge if desired. See discharge information sheets. RTO in 6 weeks for exam, or sooner if problems arise. Dr. Molina notified and agreeable with POC. - General Info Date of Service: 12/28/19 Admission Dx/Problem (Free Text: Patient Status Order with Admit Dx/Problem 12/27/19 00:10 Patient Status [ADT] Routine 12/27/19 01:04 Patient Status [ADT] Routine Admission Diagnosis/Problem Admission Diagnosis/Problem Subjective Update: 24yo at 38w6d [place] admitted with active labor at 9cm dilated. was uncomplicated. O positive, Abs screen negative, RI, GBS negative. S/P uncomplicated Delivery details: Female infant Weight: 3200gms : 8/9 EBL 350cc Functional Status: Reports: Pain Controlled, Tolerating Diet, Ambulating, Urinating - Review of Systems General: Reports: No Symptoms HEENT: Reports: No Symptoms Pulmonary: Reports: No Symptoms Cardiovascular: Reports: No Symptoms Gastrointestinal: Reports: No Symptoms Genitourinary: Reports: No Symptoms Musculoskeletal: Reports: No Symptoms Skin: Reports: No Symptoms Neurological: Reports: No Symptoms Psychiatric: Reports: No Symptoms - Patient Data Vitals - Most Recent: Last Vital Signs Temp 96.9 F 12/28/19 04:00 Pulse 56 L 12/28/19 04:00 Resp 15 12/28/19 04:00 BP 101/55 L 12/28/19 04:00 Pulse Ox 97 12/28/19 04:00 Weight - Most Recent: 125 lb Lab Results - Last 24 hrs: Laboratory Results - last 24 hr 12/28/19 Range/Units 05:08 Hgb 8.2 L (12.0-16.0) g/dL Hct 26.9 L (36.0-46.0) % Med Orders - Current: Current Medications Acetaminophen (Tylenol Extra Strength) 500 mg PO Q4H PRN PRN Reason: Pain Acetaminophen (Tylenol Extra Strength) 1,000 mg PO Q4H PRN PRN Reason: Pain Last Admin: 12/27/19 20:07 Dose: 1,000 mg Documented by: Benzocaine/Menthol (Dermoplast Pain Relief 20%-0.5% [place]) 78 gm TOP ASDIRECTED PRN PRN Reason: Perineal Comfort Measure Bisacodyl (Dulcolax) 10 mg RECTAL ONETIME PRN PRN Reason: Constipation Docusate Sodium (Colace) 100 mg PO BID PRN PRN Reason: Constipation Last Admin: 12/27/19 20:07 Dose: 100 mg Documented by: Emollient Ointment (Lansinoh Hpa) 0 gm TOP ASDIRECTED PRN PRN Reason: Sore Nipples Ibuprofen (Motrin) 400 mg PO Q4H PRN PRN Reason: Pain Ibuprofen (Motrin) 800 mg PO Q6H PRN PRN Reason: Pain Last Admin: 12/27/19 11:00 Dose: 800 mg Documented by: Oxycodone HCl (Oxycodone) 5 mg PO Q2H PRN PRN Reason: Pain Polysaccharide Iron Complex (Ferrex 150) 150 mg PO BID [facility] Sodium Chloride (Saline Flush) 10 ml FLUSH ASDIRECTED PRN PRN Reason: Keep Vein Open Sodium Chloride (Saline Flush) 2.5 ml FLUSH ASDIRECTED PRN PRN Reason: Keep Vein Open Sodium Chloride (Normal Saline) 10 ml IV ASDIRECTED PRN PRN Reason: IV Use Witch Andree (Tucks) 1 pad TOP ASDIRECTED PRN PRN Reason: comfort care Discontinued Medications Butorphanol Tartrate (Stadol) 1 mg IVPUSH Q1H PRN PRN Reason: Pain Carboprost Tromethamine (Hemabate Ds) 250 mcg IM ASDIRECTED PRN PRN Reason: Post Hemorrhage Oxytocin/Sodium Chloride (Oxytocin 30 Unit/500 Ml-Ns) 30 unit in 500 mls @ 500 mls/hr IV TITRATE [facility] Last Admin: 12/27/19 00:46 Dose: 500 mls/hr Documented by: Tranexamic Acid 1,000 mg/ (Sodium Chloride) 110 mls @ 660 mls/hr IV ONETIME PRN PRN Reason: Bleeding Lactated Ringer's (Ringers, Lactated) 1,000 mls @ 150 mls/hr IV ASDIRECTED [facility] Last Admin: 12/27/19 00:10 Dose: 150 mls/hr Documented by: Lidocaine HCl (Xylocaine 1%) 50 ml INJECT ONETIME PRN PRN Reason: Laceration repair Methylergonovine Maleate (Methergine) 0.2 mg IM ASDIRECTED PRN PRN Reason: Post Hemorrhage Misoprostol (Cytotec) 200 mcg PO ONETIME PRN PRN Reason: Post Hemorrhage Nalbuphine HCl (Nubain) 10 mg IVPUSH Q1H PRN PRN Reason: Pain (severe 7-10) Sterile Water (Sterile Water For Irrigation) 1,000 ml IRR ASDIRECTED PRN PRN Reason: delivery - Exam General: Reports: Alert, Oriented, Cooperative, No Acute Distress HEENT: Reports: Pupils Equal, Pupils Reactive, Mucous Membr. Moist/[place] Neck: Reports: Supple Lungs: Reports: Clear to Auscultation, Normal Respiratory Effort Cardiovascular: Reports: Regular Rate, Regular Rhythm GI/Abdominal Exam: Normal Bowel Sounds, Soft, Non-Tender, No Organomegaly, No Distention (Female) Exam: Enlarged Uterus ( uterus, firm U-2), Vaginal Bl eeding (Small to moderate rubra lochia, no clots.) Rectal (Female) Exam: Normal Exam, Normal Rectal Tone Back Exam: Reports: Normal Inspection, Full Range of Motion Extremities: Normal Inspection, Normal Range of Motion, Non-Tender, No Pedal Edema, Normal Capillary Refill Skin: Reports: Warm, Dry, Intact Neurological: Reports: No New Focal Deficit Psy/Mental Status: Reports: Alert, Normal Affect, Normal Mood
[2019-12-28] MEDS: Acetaminophen 500 MG Tab PO PRN (08:40)
[2019-12-28] MEDS ORDERED: Iron Polysaccharides Complex 150 MG Cap PO SCH (09:00)
== END 2019-12-28 13:42 | disposition home or self-care (01) | DRG 807 ==
LOC: MW.OBCHECK 23:58 → MW.OB 23:58 → MW.OBCHECK 12-27 00:10 → MW.OB 12-27 00:10 → OBSVTOIN 12-27 00:46 → MW.OB 12-27 03:52
PROVIDERS: ADMIT Obstetrics & Gynecology; ATTEND Obstetrics & Gynecology Obstetrics
PROC: 10E0XZZ Delivery of Products of Conception, External Approach (ICD-10-PCS; principal; 2019-12-27)
DX: O69.81X0 Labor and delivery complicated by cord around neck, without compression, not applicable or unspecified (principal); Z37.0 Single live birth; Z3A.38 38 weeks gestation of pregnancy
CPT/HCPCS: 36415; 59025; 59409; 85014; 85018; 85027; 86592; 86850; 86900; 86901; A9270-GY; J2590; J7120